=== PATIENT | male | born 1955 | race Caucasian/White ===

== ENCOUNTER 2022-10-17 14:07 | Emergency (ER) | payer BC ==
[~2022-10-17] VITALS: Ht 182.9 cm; Wt 94.5 kg
[2022-10-17 14:15] VITALS: BP 124/81; PULSE 96; RESP 18
[2022-10-17 16:10] VITALS: O2SAT 98
[2022-10-17] MEDS ORDERED: KETOROLAC TROMETH 60MG/2ML VIAL IM ONE (16:15)
== END 2022-10-17 17:08 | disposition home or self-care (01) ==
LOC: ER 14:07
DX: R68.84 Jaw pain (principal); K04.7 Periapical abscess without sinus
CPT/HCPCS: 70110; 96372; 99283; J1885